=== PATIENT | female | born 1960 | race Two or more races ===

== ENCOUNTER 2018-12-01 07:08 | Day surgery (SDC) | payer OTHER ==
[~2018-12-01 07:08] MED LIST: LYRICA50 MG PO; SYNTHROID75 MCG PO; TYLENOL-CODEINE1 TA1 PO
[2018-12-01] MEDS ORDERED: MACROBID 100 M100 MG PO (11:39)
[2018-12-01] MEDS ORDERED: ULTRACET PO (11:39)
== END 2018-12-01 13:45 | disposition home or self-care (01) ==
LOC: CIR.AMB 07:08
DX: N81.11 Cystocele, midline (principal); N81.5 Vaginal enterocele